=== PATIENT | female | born 1955 | race Caucasian/White ===

== ENCOUNTER → 2020-05-05 | Outpatient (CLI) | payer OTHER ==
[~2020-05-05] MED LIST: ASPI81TA45 PO; CHOL10003 PO; ETOD200C2 PO; LEVO100T5 PO; biotin PO
[2020-05-05 10:00] LABS: BASOPHILS % (AUTO) 2 % (0-1); EOSINOPHILS % (AUTO) 1 % (1-7); LYMPHOCYTES % (AUTO) 36 % (22-44); MD NO; MEAN CORPUSCULAR HEMOGLOBIN 33.6 pg (27.0-34.8); MEAN CORPUSCULAR HGB CONC 34.6 g/dL (32.4-35.8); MEAN PLATELET VOLUME 8.3 fL (7.4-10.4); MONOCYTES % (AUTO) 6 % (2-9); NEUTROPHILS % (AUTO) 55 % (42-75); PLATELET COUNT 230 x10^3/uL (130-400); RED BLOOD COUNT 4.71 x10^6/uL (3.82-5.3); RED CELL DISTRIBUTION WIDTH 13.3 % (9.6-15.2)
[2020-05-05 10:10] LABS: INTERNATIONAL NORMALIZED RATIO 1.02 (0.93-1.1); PROTHROMBIN TIME 10.8 Seconds (9.6-11.5)
[2020-05-05 10:32] LABS: ALANINE AMINOTRANSFERASE 121 U/L (12-78); ALBUMIN 3.4 g/dL (3.4-5.0); ANION GAP 7 mmol/L (5-15); CALCIUM 9.2 mg/dL (8.5-10.1); CHLORIDE 109 mmol/L (98-107); CREATININE 1.05 mg/dL (0.55-1.02)
[2020-05-05 10:34] LABS: ALKALINE PHOSPHATASE 120 U/L (45-117); BILIRUBIN,TOTAL 0.9 mg/dL (0.2-1.0); TOTAL PROTEIN 7.6 g/dL (6.4-8.2)
== END | disposition home or self-care (01) ==
LOC: STAR 09:00
PROVIDERS: ATTEND Obstetrics & Gynecology
DX: Z01.812 Encounter for preprocedural laboratory examination (principal); Z20.828 Contact with and (suspected) exposure to other viral communicable diseases; N95.2 Postmenopausal atrophic vaginitis; N90.1 Moderate vulvar dysplasia; R94.31 Abnormal electrocardiogram [ECG] [EKG]
CPT/HCPCS: 36415; 71046; 80053; 85025; 85610; 85730; 87635; 93005

== ENCOUNTER 2020-05-10 07:18 | Day surgery (SDC) | payer OTHER ==
[~2020-05-10] VITALS: Ht 158.8 cm; Wt 113.2 kg
[2020-05-10 08:00] VITALS: BP 134/83
[2020-05-10] MEDS ORDERED: CEFOTETAN PMX 2GM/50ML 50 ML IVPB ONE (08:00)
[2020-05-10] MEDS ORDERED: CHLORHEXIDINE 15 ML UDC MM ONE (08:00)
[2020-05-10] MEDS ORDERED: LACTATED RINGERS 1,000 ML IV SCH (08:30)
[2020-05-10] MEDS ORDERED: BUPIVACAINE/PF 0.25% ONE (11:53)
[2020-05-10] MEDS ORDERED: SILVER SULF. CRM 1% , 25GM ONE (11:53)
[2020-05-10] MEDS ORDERED: FENTANYL PF 100 MCG/2ML ONE ×2 (12:00→12:18)
[2020-05-10] MEDS ORDERED: LIDOCAINE-MPF 2% ,5ML ONE (12:02)
[2020-05-10] MEDS ORDERED: PROPOFOL 10 MG/ML, 20ML ONE (12:02)
[2020-05-10] MEDS ORDERED: DEXAMETHASONE 4 MG/ML, 1ML ONE ×3 (12:10)
[2020-05-10] MEDS ORDERED: ONDANSETRON 2MG/ML, 2ML ONE (12:11)
[2020-05-10] MEDS ORDERED: KETOROLAC 30 MG/1 ML ONE (12:11)
[2020-05-10] MEDS ORDERED: FENTANYL PF 100 MCG/2ML IV PRN (12:30)
[2020-05-10] MEDS ORDERED: HYDROmorphone 1 MG/ML, 1ML INJ IVPush PRN (12:30)
[2020-05-10] MEDS ORDERED: OXYcodone 5 MG/5 ML ORAL.SOL UDC PO PRN (12:30)
[2020-05-10] MEDS ORDERED: PROMETHAZINE 25 MG/ML, 1ML IVPush PRN (12:30)
[2020-05-10] MEDS ORDERED: ONDANSETRON 2MG/ML, 2ML IVPush PRN (12:30)
[2020-05-10] MEDS ORDERED: PROMETHAZINE 25 MG/ML, 1ML ONE (13:01)
== END 2020-05-10 15:40 | disposition home or self-care (01) ==
LOC: OUT 07:18
PROVIDERS: ATTEND Obstetrics & Gynecology
DX: D07.1 Carcinoma in situ of vulva (principal); N95.2 Postmenopausal atrophic vaginitis; E03.9 Hypothyroidism, unspecified; E66.9 Obesity, unspecified; Z68.42 Body mass index [BMI] 45.0-49.9, adult; Z79.82 Long term (current) use of aspirin; Z79.890 Hormone replacement therapy; Z79.899 Other long term (current) drug therapy; Z87.891 Personal history of nicotine dependence; Z80.1 Family history of malignant neoplasm of trachea, bronchus and lung; Z83.3 Family history of diabetes mellitus
CPT/HCPCS: 11623; 12041; 88305; J1100; J1885; J2405; J2550; J2704; J3010; J7120